=== PATIENT | female | born 1950 | race Caucasian/White ===

== ENCOUNTER → 2023-11-01 11:21 | Outpatient (REF) | payer MEDICARE, SELFPAY | LOC: RAD 11:21 | PROVIDERS: ATTENDING PHYSICIAN Physician Assistant | DX: M79.674 Pain in right toe(s) (principal) | CPT/HCPCS: 73630 ==

== ENCOUNTER → 2024-02-25 06:26 | Day surgery (SDC) | payer MEDICARE, SELFPAY ==
[2024-02-25 09:41] LABS: Glucose - Point of Care 154 mg/dl (70-99)
== END ==
LOC: GI 06:26
PROVIDERS: ATTENDING PHYSICIAN Internal Medicine Gastroenterology
DX: K44.9 Diaphragmatic hernia without obstruction or gangrene (principal); K31.89 Other diseases of stomach and duodenum; K22.70 Barrett's esophagus without dysplasia; K21.9 Gastro-esophageal reflux disease without esophagitis; K29.50 Unspecified chronic gastritis without bleeding
CPT/HCPCS: 43239; 88305; 82962; 88342

== ENCOUNTER → 2024-04-14 09:40 | Outpatient (REF) | payer MEDICARE, SELFPAY | LOC: HWWDC 09:40 | PROVIDERS: ATTENDING PHYSICIAN Nurse Practitioner Family | DX: Z12.31 Encounter for screening mammogram for malignant neoplasm of breast (principal) | CPT/HCPCS: 77063; 77067 ==

== ENCOUNTER → 2024-05-14 09:32 | Outpatient (REF) | payer MEDICARE, SELFPAY | LOC: HWRAD 09:32 | PROVIDERS: ATTENDING PHYSICIAN Nurse Practitioner Family | DX: Z78.0 Asymptomatic menopausal state (principal) | CPT/HCPCS: 77080 ==